=== PATIENT | female | born 1995 | race Hispanic/Latino ===

== ENCOUNTER 2017-06-04 15:00 | Emergency (ER) | payer SELFPAY | END 2017-06-04 15:53 | disposition home or self-care (01) | LOC: EDH 15:00 | DX: R11.2 Nausea with vomiting, unspecified (principal); R19.7 Diarrhea, unspecified | CPT/HCPCS: 99281 ==

== ENCOUNTER 2020-03-01 11:03 | Emergency (ER) | payer MEDICAID ==
[2020-03-01 11:31] LABS: BASOPHILS % (AUTO) 0.2 % (0.0-5.0); EOSINOPHILS % (AUTO) 0.1 % (0.0-8.0); HEMATOCRIT 44.3 % (36-48); LYMPHOCYTES % (AUTO) 14.8 % (21.0-51.0); MEAN CORPUSCULAR HEMOGLOBIN 27.4 pg (27.0-33.0); MEAN CORPUSCULAR HGB CONC 33.2 g/dL (32.0-36.0); MEAN CORPUSCULAR VOLUME 82.6 fL (79-99); MONOCYTES % (AUTO) 7.6 % (3.0-13.0); PLATELET COUNT (AUTO) 449 K/uL (130-400); RED BLOOD CELL COUNT(AUTO) 5.36 MIL/uL (4.00-5.50); RED CELL DISTRIBUTION WIDTH 14.8 % (11.0-15.5); WHITE BLOOD COUNT (AUTO) 10.8 K/uL (4.8-10.8)
[2020-03-01 11:36] LABS: CARBON DIOXIDE 22 mmol/L (21-32); CHLORIDE 96 mmol/L (101-111); CREATININE 1.1 mg/dL (0.5-1.5); GLOMERULAR FILTR. RATE CALC 66 mL/min (>60); GLUCOSE,RANDOM 126 mg/dL (70-105); POTASSIUM 3.5 mmol/L (3.5-5.1); SODIUM SERUM 134 mmol/L (136-145); UREA NITROGEN, BLOOD 12 mg/dL (7-18)
[2020-03-01 11:40] LABS: ALANINE AMINOTRANSFERASE 14 U/L (12-78); ALBUMIN 4.7 g/dL (3.5-5.0); ALCOHOL, BLOOD < 3 mg/dL (0-10); ASPARTATE AMINOTRANSFERASE 16 U/L (10-37); BILIRUBIN,TOTAL 0.7 mg/dL (0.2-1.0); CREATINE KINASE, TOTAL 27 U/L (21-232); SALICYLATE 4.5 mg/dL (2.8-20.0); TOTAL PROTEIN, SERUM 9.8 g/dL (6.0-8.3)
[2020-03-01 11:41] LABS: ACETAMINOPHEN < 1 mcg/mL (10-30)
[2020-03-01 13:43] LABS: APPEARANCE,URINE Cloudy (CLEAR); BILIRUBIN,URINE Negative (NEGATIVE); COLOR,URINE Dark Yellow (YELLOW); GLUCOSE, URINE (UA) Negative (NEGATIVE); KETONES,URINE >=80 mg/dL (NEGATIVE); LEUKOCYTE ESTERASE ,URINE Small (NEGATIVE); NITRATE,URINE Negative (NEGATIVE); OCCULT BLOOD,URINE Large (NEGATIVE); PH,URINE 5.5 (5.0-8.0); PROTEIN,URINE POS 2+ mg/dL (NEGATIVE)
[2020-03-01 13:53] LABS: HCG,QUAL RESULT NEGATIVE (NEGATIVE)
[2020-03-01 13:59] LABS: AMPHET/METH SCREEN,URINE NEGATIVE (NEGATIVE); BARBITURATE SCREEN, URINE NEGATIVE (NEGATIVE); BENZODIAZEPINES SCREEN,URINE NEGATIVE (NEGATIVE); CANNABINOID SCREEN,URINE POSITIVE (NEGATIVE); COCAINE SCREEN,URINE NEGATIVE (NEGATIVE); OPIATE SCREEN,URINE NEGATIVE (NEGATIVE); PHENCYCLIDINE SCREEN,URINE NEGATIVE (NEGATIVE)
[2020-03-01 14:16] LABS: BACTERIA,URINE Few /HPF (None Seen); SQUAMOUS EPITHELIAL CELL,UR 30-50 /HPF (0-2)
== END 2020-03-01 18:33 | disposition home or self-care (01) ==
LOC: EDH 11:03
DX: F23 Brief psychotic disorder (principal); F12.10 Cannabis abuse, uncomplicated; Z72.0 Tobacco use
CPT/HCPCS: 36415; 80053; 80305; 81001; 81025; 82550; 85025; 87088; 93005; 99284; G0481

== ENCOUNTER 2020-08-30 12:36 | Emergency (ER) | payer MEDICAID ==
[2020-08-30] MEDS ORDERED: SODIUM CHLORIDE 0.9% 1000ML 1,000 ML IV ONE (13:05)
[2020-08-30] MEDS ORDERED: METOCLOPRAMIDE 10 MG/2 ML VIAL ONE (13:07)
[2020-08-30 13:08] LABS: BASOPHILS % (AUTO) 0.1 % (0.0-5.0); EOSINOPHILS % (AUTO) 0.1 % (0.0-8.0); HEMATOCRIT 39.6 % (36-48); LYMPHOCYTES % (AUTO) 12.5 % (21.0-51.0); MEAN CORPUSCULAR HEMOGLOBIN 29.2 pg (27.0-33.0); MEAN CORPUSCULAR HGB CONC 35.4 g/dL (32.0-36.0); MEAN CORPUSCULAR VOLUME 82.5 fL (79-99); MONOCYTES % (AUTO) 5.2 % (3.0-13.0); NEUTROPHILS % (AUTO) 81.8 % (40.0-77.0); PLATELET COUNT (AUTO) 358 K/uL (130-400); RED CELL DISTRIBUTION WIDTH 14.7 % (11.0-15.5); WHITE BLOOD COUNT (AUTO) 14.1 K/uL (4.8-10.8)
[2020-08-30 13:18] LABS: CREATININE 0.8 mg/dL (0.5-1.5); POTASSIUM 3.6 mmol/L (3.5-5.1)
[2020-08-30 13:44] LABS: ALBUMIN 4.4 g/dL (3.5-5.0); BILIRUBIN,TOTAL 0.9 mg/dL (0.2-1.0); TOTAL PROTEIN, SERUM 9.2 g/dL (6.0-8.3)
[2020-08-30 14:18] LABS: APPEARANCE,URINE Cloudy (CLEAR); BILIRUBIN,URINE Negative (NEGATIVE); COLOR,URINE Dark Yellow (YELLOW); GLUCOSE, URINE (UA) Negative (NEGATIVE); KETONES,URINE >=160 mg/dL (NEGATIVE); LEUKOCYTE ESTERASE ,URINE Moderate (NEGATIVE); NITRATE,URINE Negative (NEGATIVE); OCCULT BLOOD,URINE Negative (NEGATIVE); PROTEIN,URINE POS 2+ mg/dL (NEGATIVE)
[2020-08-30 14:51] LABS: BACTERIA,URINE Moderate /HPF (None Seen); MUCUS,URINE Moderate LPF (None Seen); SQUAMOUS EPITHELIAL CELL,UR Many /HPF (0-2)
== END 2020-08-30 15:01 | disposition home or self-care (01) ==
LOC: EDH 12:36
DX: O21.0 Mild hyperemesis gravidarum (principal); O23.41 Unspecified infection of urinary tract in pregnancy, first trimester; Z3A.01 Less than 8 weeks gestation of pregnancy
CPT/HCPCS: 36415; 76801; 80053; 81001; 83690; 84702; 85025; 87088; 96361; 96374; 99284; J2765; J7030

== ENCOUNTER 2023-12-10 21:37 | Emergency (ER) | payer MEDICAID ==
[~2023-12-10] VITALS: Ht 162.6 cm; Wt 74.4 kg
[2023-12-10] MEDS: ACETAMINOPHEN 500 MG TABLET PO ONE (21:57)
[2023-12-10 22:13] LABS: RAPID GROUP A STREP negative (NEGATIVE)
[2023-12-10] MEDS: 0.9%NACL 1000ML 1,000 ML IV ONE (22:20)
[2023-12-10 22:22] LABS: INFLUENZA TYPE A Negative For Type A (NEGATIVE); INFLUENZA TYPE B Negative For Type B (NEGATIVE)
[2023-12-10 22:23] LABS: COVID19 (SARS ANTIGEN RAPID) PRESUMPTIVE NEGATIVE (NEGATIVE)
[2023-12-10 22:33] LABS: BASOPHILS # (AUTO) 0.02 K/uL (0.00-0.20); BASOPHILS % (AUTO) 0.2 % (0.0-5.0); EOSINOPHILS # (AUTO) 0.05 K/uL (0.00-0.70); EOSINOPHILS % (AUTO) 0.4 % (0.0-8.0); HEMATOCRIT 31.7 % (36-48); IMMATURE GRANULOCYTE ABSOLUTE 0.04 K/uL (0-1); LYMPHOCYTES # (AUTO) 2.2 K/uL (1.0-4.8); LYMPHOCYTES % (AUTO) 18.7 % (21.0-51.0); MEAN CORPUSCULAR HEMOGLOBIN 26.7 pg (27.0-33.0); MEAN CORPUSCULAR HGB CONC 32.8 g/dL (32.0-36.0); MEAN CORPUSCULAR VOLUME 81.5 fL (79-99); MONOCYTES # (AUTO) 1.1 K/uL (0.1-1.0); MONOCYTES % (AUTO) 9.3 % (3.0-13.0); NEUTROPHILS # (AUTO) 8.4 K/uL (1.8-7.7); NEUTROPHILS % (AUTO) 71.1 % (40.0-77.0); PLATELET COUNT (AUTO) 280 K/uL (130-400); RED BLOOD CELL COUNT(AUTO) 3.89 MIL/uL (4.00-5.50); RED CELL DISTRIBUTION WIDTH 13.6 % (11.0-15.5); WHITE BLOOD COUNT (AUTO) 11.9 K/uL (4.8-10.8)
[2023-12-10 22:47] LABS: CREATININE 0.6 mg/dL (0.5-1.0); POTASSIUM 3.2 mmol/L (3.5-5.1)
[2023-12-11] MEDS ORDERED: POTASSIUM BICARB/CIT AC 25 MEQ TABLET.EFF PO ONE
[2023-12-11] MEDS ORDERED: KETOROLAC 30MG VIAL (30MG/ML) IVP ONE
[2023-12-11] MEDS ORDERED: DEXAMETHASONE SOD PHOSPHATE 4 MG/ML 1ML VIAL IM ONE
[2023-12-11 00:13] VITALS: BP 132/74; PULSE 98; RESP 20; O2SAT 98
[2023-12-11] MEDS ORDERED: AMOX500T2 PO (00:14)
[2023-12-11] MEDS ORDERED: METH4TAB3 PO (00:14)
[2023-12-11] MEDS: POTASSIUM BICARB/CIT AC 25 MEQ TABLET.EFF ONE (00:28)
[2023-12-11] MEDS: DEXAMETHASONE SOD PHOSPHATE 4 MG/ML 1ML VIAL ONE (00:29)
[2023-12-11] MEDS: KETOROLAC 30MG VIAL (30MG/ML) ONE (00:29)
== END 2023-12-11 00:41 | disposition home or self-care (01) ==
LOC: EDH 21:37
DX: J02.9 Acute pharyngitis, unspecified (principal); Z20.822 Contact with and (suspected) exposure to COVID-19; E87.6 Hypokalemia; R59.1 Generalized enlarged lymph nodes
CPT/HCPCS: 99285; 96361; 87426; 80048; 85025; 87880; 87804 ×2; 83605; 81025; 36415; 76536; 96374; 96372; J7030; J1100; J1885

== ENCOUNTER 2024-05-20 10:11 | Emergency (ER) | payer MEDICAID ==
[~2024-05-20] VITALS: Ht 160 cm; Wt 70.3 kg
[~2024-05-20 10:11] MED LIST: AMOX500T2 PO; FAMO20TA8 PO
[2024-05-20 10:42] LABS: BASOPHILS # (AUTO) 0.03 K/uL (0.00-0.20); BASOPHILS % (AUTO) 0.3 % (0.0-5.0); EOSINOPHILS # (AUTO) 0.03 K/uL (0.00-0.70); EOSINOPHILS % (AUTO) 0.3 % (0.0-8.0); HEMATOCRIT 49.1 % (36-48); IMMATURE GRANULOCYTE ABSOLUTE 0.03 K/uL (0-1); LYMPHOCYTES # (AUTO) 1.9 K/uL (1.0-4.8); LYMPHOCYTES % (AUTO) 18.4 % (21.0-51.0); MEAN CORPUSCULAR HEMOGLOBIN 29.8 pg (27.0-33.0); MEAN CORPUSCULAR HGB CONC 33.4 g/dL (32.0-36.0); MEAN CORPUSCULAR VOLUME 89.3 fL (79-99); MONOCYTES # (AUTO) 0.3 K/uL (0.1-1.0); MONOCYTES % (AUTO) 2.8 % (3.0-13.0); NEUTROPHILS # (AUTO) 8.2 K/uL (1.8-7.7); NEUTROPHILS % (AUTO) 77.9 % (40.0-77.0); PLATELET COUNT (AUTO) 409 K/uL (130-400); RED CELL DISTRIBUTION WIDTH 13.2 % (11.0-15.5); WHITE BLOOD COUNT (AUTO) 10.6 K/uL (4.8-10.8)
--- NOTE | 2024-05-20 10:54 | ERN ---
General Chief Complaint: Abdominal Pain Stated Complaint: ABD PAIN Time Seen by MD: 10:17 Time Seen by Midlevel: 10:17 Source: patient History of Present Illness Initial Comments 28-year-old female who presents to the ED due to abdominal pain. Patient reports nausea, vomiting, diarrhea but denies any fevers or further associated symptoms. Patient states she has a history of gallstones but was at the time. Patient states she is currently going through a miscarriage. Denies significant past medical history. Allergies: Coded Allergies: No Known Allergies (Unverified Allergy, Unknown, 08/30/20) Home Meds Active Scripts Famotidine (Famotidine) 20 Mg Tablet, 1 TAB PO BID for 30 Days, #60 TAB 0 Refills Prov:DHEERAJ GUTIERREZ CLINICAL REVIEW SPECIALIST 05/10/24 Amoxicillin (Amoxicillin) 500 Mg Tablet, 1 TAB PO TID for 7 Days, #21 TAB 0 Refills Prov:DHEERAJ GUTIERREZ CLINICAL REVIEW SPECIALIST 05/10/24 Past Medical History Past Medical History: Gallstones Past Surgical History: None Female( History) LMP: Apr 28, 2024 : 2 Para: 1 ROS Dictation Constitutional: Negative for fever,chills, and weight loss Eyes: Negative for injury, pain,redness, and discharge ENT: Negative for injury,pain or swelling Cardiovascular: Negative for chest pain, palpitations, and edema Respiratory: Negative for shortness of breath, cough, and wheezing, Abdomen/GI: Positive for abdominal pain, nausea, vomiting, diarrhea Negative for constipation Back: Negative for injury and pain : Negative for painful urination, bleeding or discharge MS/Extremity: Negative for injury and deformity Skin: Negative for rash, and discoloration Neuro: Negative for headache, weakness, numbness, tingling, and seizure Psych: Negative for suicide ideation, homicidal ideation, and hallucinations Physical Exam Physical Exam Dictation General: awake, alert, no acute distress Head/Face: Normocephalic, atraumatic Eyes: normal conjunctiva Cardiovascular: RRR, normal S1/S Respiratory: CTAB, no respiratory distress, No rales or wheezes Abdomen: Soft, right upper quadrant tenderness, non-distended, no guarding or rebound. Skin: Warm, dry, normal turgor, no rash MS/Extremity: Pulses equal, no cyanosis, neurovascular intact, FROM Neuro: COAx4, GCS 15, normal gait, Psych: Normal behavior, mood, and affect normal Results Laboratory and Microbiology Lab and Micro Result Laboratory Tests Test 05/20/24 10:30 05/20/24 11:40 White Blood Count 10.6 K/uL (4.8-10.8) Red Blood Count 5.50 MIL/uL (4.00-5.50) Hemoglobin 16.4 g/dL (12.0-16.0) H Hematocrit 49.1 % (36-48) H Mean Corpuscular Volume 89.3 fL (79-99) Mean Corpuscular Hemoglobin 29.8 pg (27.0-33.0) Mean Corpuscular Hemoglobin Concent 33.4 g/dL (32.0-36.0) Red Cell Distribution Width 13.2 % (11.0-15.5) Platelet Count 409 K/uL (130-400) H Mean Platelet Volume 10.3 fL (7.5-10.5) Immature Granulocyte % (Auto) 0.3 % (0-1) Neutrophils (%) (Auto) 77.9 % (40.0-77.0) H Lymphocytes (%) (Auto) 18.4 % (21.0-51.0) L Monocytes (%) (Auto) 2.8 % (3.0-13.0) L Eosinophils (%) (Auto) 0.3 % (0.0-8.0) Basophils (%) (Auto) 0.3 % (0.0-5.0) Neutrophils # (Auto) 8.2 K/uL (1.8-7.7) H Lymphocytes # (Auto) 1.9 K/uL (1.0-4.8) Monocytes # (Auto) 0.3 K/uL (0.1-1.0) Eosinophils # (Auto) 0.03 K/uL (0.00-0.70) Basophils # (Auto) 0.03 K/uL (0.00-0.20) Absolute Immature Granulocyte (auto 0.03 K/uL (0-1) Nucleated Red Blood Cells 0.0 % (0.0-0.19) Sodium Level 142 mmol/L (136-145) Potassium Level 3.6 mmol/L (3.5-5.1) Chloride Level 103 mmol/L (101-111) Carbon Dioxide Level 27 mmol/L (21-32) Blood Urea Nitrogen 5 mg/dL (7-18) L Creatinine 0.9 mg/dL (0.5-1.0) Glomerular Filtration Rate Calc 90 mL/min (>90) Random Glucose 115 mg/dL (70-105) H Total Calcium 9.5 mg/dL (8.5-10.1) Total Bilirubin 0.5 mg/dL (0.2-1.0) Aspartate Amino Transf (AST/SGOT) 13 U/L (10-37) Alanine Aminotransferase (ALT/SGPT) 26 U/L (12-78) Alkaline Phosphatase 71 U/L (50-136) Total Protein 9.6 g/dL (6.0-8.3) H Albumin 5.0 g/dL (3.5-5.0) Lipase 33 U/L (16-77) Urine Color LIGHT-YELLOW (YELLOW) Urine Appearance CLEAR (CLEAR) Urine pH 6.5 (5.0-8.0) Urine Specific [place] 1.016 (1.001-1.031) Urine Protein NEGATIVE mg/dL (NEGATIVE) Urine Glucose (UA) NEGATIVE mg/dL (NEGATIVE) Urine Ketones 10 mg/dL (NEGATIVE) H Urine Occult Blood NEGATIVE (NEGATIVE) Urine Nitrate NEGATIVE (NEGATIVE) Urine Bilirubin NEGATIVE mg/dL (NEGATIVE) Urine Urobilinogen 0.2 mg/dL (0.2-1.0) Urine Leukocyte Esterase NEGATIVE Kylee/uL Urine RBC 0-1 /HPF (0-1) Urine WBC 2-5 /HPF (0-1) H Urine Squamous Epithelial Cells FEW /HPF (0-2) Urine Bacteria RARE /HPF (None Seen) Urine HCG, Qualitative NEGATIVE (NEGATIVE) Labs Reviewed?: Yes EKG/XRAY/US/CT/MRI Ultrasound Comment REASON: RUQ abdominal pain ORDERING PHYSICIAN: DAVIS NOBLE PROCEDURE: [id number] - US ABDOMINAL RUQ\LTD Exam Type: US ABDOMINAL RUQ\E\LTD Clinical Information: RUQ abdominal pain Comparison: None Findings: The liver shows normal echogenicity and size. No hepatic lesions are seen. Doppler evaluation shows patent portal and hepatic veins. The gallbladder shows cholelithiasis. No acute or chronic inflammation is noted. The gallbladder wall measures 2 mm No bile duct dilatation is noted. The common bile duct measures 6mm. The right kidney measures 9.3 x 4.3 cm, and shows no hydronephrosis or calculi, masses or other abnormalities. The pancreas is unremarkable. The aorta and inferior vena cava show no significant abnormalities. IMPRESSION: Cholelithiasis. MDM MDM: Differential diagnosis: Biliary colic, cholecystitis, cholelithiasis Rationale: 28-year-old female who presents to the ED due to abdominal pain. Patient reports nausea, vomiting, diarrhea but denies any fevers or further associated symptoms. Patient states she has a history of gallstones but was at the time. Patient states she is currently going through a miscarriage. Denies significant past medical history. On initial examination patient had right upper quadrant tenderness. Labs obtained are nonspecific. UA does not indicate a urinary tract infection. Right upper quadrant ultrasound shows cholelithiasis with no indications of cholecystitis. Patient was administered morphine and Zofran in the ED. On re- examination patient verbalized pain resolved, and had no more episodes of vomiting. Patient was educated on findings and diagnosis. Advised to follow up with PCP. Return to the ED if any worsening symptoms. Patient verbalized understanding. Patient stable for discharge. There are no social concerns with this patient. I independently interpreted the test that were performed, results were reviewed by me and considered findings on radiology if ordered. Medical management and examination interpretation discussions were had by me with other qualified healthcare professionals as indicated for the patient's care. ED Course Orders Procedure Category Date Status Time Cbc With Differential LAB 05/20/24 Complete 10:19 Comprehensive LAB 05/20/24 Complete Metabolic Panel 10:19 Lipase LAB 05/20/24 Complete 10:19 Urinalysis LAB 05/20/24 Complete W/Microscopic 10:19 ,Urine Test LAB 05/20/24 Complete 10:19 Us Abdominal Ruq\Ltd US 05/20/24 Resulted 10:25 Ondansetron 4mg Inj PHA 05/20/24 Complete (Zofran 4mg Inj) 10:30 Morphine 2mg Syg PHA 05/20/24 Complete (Morphine 2mg Syg) 10:30 Morphine 2mg Syg PHA 05/20/24 Complete (Morphine 2mg Syg) 12:30 Current Medications Medications (Trade) Dose Ordered Sig/Matt Route PRN Reason Start Time Stop Time Status Last Admin Dose Admin Morphine Sulfate (morPHINE 2MG SYG) 2 mg ONCE ONCE IVP 05/20/24 10:30 05/20/24 10:31 DC 05/20/24 11:02 Morphine Sulfate (morPHINE 2MG SYG) 2 mg ONCE ONCE IVP 05/20/24 12:30 05/20/24 12:31 DC Ondansetron HCl (zoFRAN 4MG INJ) 4 mg ONCE ONCE IVP 05/20/24 10:30 05/20/24 10:31 DC 05/20/24 11:01 Vital Signs Date Time Temp Pulse Resp B/P (MAP) Pulse Ox O2 Delivery O2 Flow Rate FiO2 05/20/24 10:13 97.3 84 16 147/99 100 Room Air 0 DX & DISP Disposition: Discharge Departure Impression: Primary Impression: Biliary colic Additional Impression: Cholelithiasis Condition: Stable Additional Instructions: Discharge home. Rest. Follow up with primary care DrJennifer in 24 hours. Return to the ER for any acute changes or worsening symptoms. If any medications were prescribed take as directed. Okay to continue home medications unless otherwise discussed during your visit in the emergency room today. Patient was also advised to follow-up with primary care physician in 1 to 2 days for continued monitoring. Referrals: NONE (PCP) I participated in the following activities of this patient's care: For this patient encounter, I reviewed the PA or CLINICAL REVIEW SPECIALIST documentation, treatment plan, and medical decision making. I did not have [id number] time with this patient. I will sign as the reviewing DrJennifer And agree with the treatment plan and disposition . DAVIS NOBLE May 20, 2024 10:54
[2024-05-20 10:55] LABS: CREATININE 0.9 mg/dL (0.5-1.0); POTASSIUM 3.6 mmol/L (3.5-5.1)
[2024-05-20 10:59] LABS: BILIRUBIN,TOTAL 0.5 mg/dL (0.2-1.0); TOTAL PROTEIN, SERUM 9.6 g/dL (6.0-8.3)
[2024-05-20] MEDS: ondanSETRON 4MG INJ IVP ONE (11:01)
[2024-05-20] MEDS: morPHINE 2 MG SYG IVP ONE ×2 (11:02→13:16)
--- NOTE | 2024-05-20 11:39 | HMCIMG ---
Exam Type: US ABDOMINAL RUQ\E\LTD Clinical Information: RUQ abdominal pain Comparison: None Findings: The liver shows normal echogenicity and size. No hepatic lesions are seen. Doppler evaluation shows patent portal and hepatic veins. The gallbladder shows cholelithiasis. No acute or chronic inflammation is noted. The gallbladder wall measures 2 mm No bile duct dilatation is noted. The common bile duct measures 6mm. The right kidney measures 9.3 x 4.3 cm, and shows no hydronephrosis or calculi, masses or other abnormalities. The pancreas is unremarkable. The aorta and inferior vena cava show no significant abnormalities. IMPRESSION: Cholelithiasis.
[2024-05-20 12:27] LABS: APPEARANCE,URINE CLEAR (CLEAR); BILIRUBIN,URINE NEGATIVE (NEGATIVE); COLOR,URINE LIGHT-YELLOW (YELLOW); GLUCOSE, URINE (UA) NEGATIVE (NEGATIVE); KETONES,URINE 10 mg/dL (NEGATIVE); LEUKOCYTE ESTERASE ,URINE NEGATIVE Leu/uL (NEGATIVE); NITRATE,URINE NEGATIVE (NEGATIVE); OCCULT BLOOD,URINE NEGATIVE (NEGATIVE); PH,URINE 6.5 (5.0-8.0); PROTEIN,URINE NEGATIVE (NEGATIVE); UROBILINOGEN,URINE 0.2 mg/dL (0.2-1.0)
[2024-05-20 12:35] LABS: HCG,QUALITATIVE URINE NEGATIVE (NEGATIVE)
[2024-05-20 12:37] LABS: BACTERIA,URINE RARE /HPF (None Seen); MUCUS,URINE RARE LPF (None Seen); RBC,URINE 0-1 /HPF (0-1); SQUAMOUS EPITHELIAL CELL,UR FEW /HPF (0-2)
[2024-05-20 14:13] VITALS: BP 101/63; PULSE 67; RESP 16; TEMP 98.5; O2SAT 99
== END 2024-05-20 14:19 | disposition home or self-care (01) ==
LOC: EDH 10:11
DX: K80.70 Calculus of gallbladder and bile duct without cholecystitis without obstruction (principal); Z79.899 Other long term (current) drug therapy
CPT/HCPCS: 99285; 96374; 76705; 96375; 80053; 83690; 85025; 81001; 81025; 36415; 96376; J2270 ×2; J2405

== ENCOUNTER 2024-06-02 08:32 | Inpatient (IN) | payer MEDICAID ==
[~2024-06-02] VITALS: Ht 160 cm; Wt 72.0 kg
[2024-06-02 09:31] LABS: BASOPHILS # (AUTO) 0.04 K/uL (0.00-0.20); BASOPHILS % (AUTO) 0.3 % (0.0-5.0); EOSINOPHILS # (AUTO) 0.07 K/uL (0.00-0.70); EOSINOPHILS % (AUTO) 0.6 % (0.0-8.0); HEMATOCRIT 38.6 % (36-48); IMMATURE GRANULOCYTE ABSOLUTE 0.03 K/uL (0-1); LYMPHOCYTES # (AUTO) 1.7 K/uL (1.0-4.8); LYMPHOCYTES % (AUTO) 13.5 % (21.0-51.0); MEAN CORPUSCULAR HEMOGLOBIN 29.8 pg (27.0-33.0); MEAN CORPUSCULAR HGB CONC 33.9 g/dL (32.0-36.0); MEAN CORPUSCULAR VOLUME 87.9 fL (79-99); MONOCYTES # (AUTO) 0.5 K/uL (0.1-1.0); MONOCYTES % (AUTO) 3.9 % (3.0-13.0); NEUTROPHILS # (AUTO) 10.1 K/uL (1.8-7.7); NEUTROPHILS % (AUTO) 81.5 % (40.0-77.0); PLATELET COUNT (AUTO) 303 K/uL (130-400); RED BLOOD CELL COUNT(AUTO) 4.39 MIL/uL (4.00-5.50); RED CELL DISTRIBUTION WIDTH 12.8 % (11.0-15.5); WHITE BLOOD COUNT (AUTO) 12.4 K/uL (4.8-10.8)
[2024-06-02] MEDS: LACTATED RINGERS 1000ML 1,000 ML IV ONE (09:32)
[2024-06-02] MEDS: ondanSETRON 4MG INJ IVP ONE (09:32)
[2024-06-02 09:37] LABS: APPEARANCE,URINE CLEAR (CLEAR); BILIRUBIN,URINE NEGATIVE (NEGATIVE); COLOR,URINE YELLOW (YELLOW); GLUCOSE, URINE (UA) 50 mg/dL (NEGATIVE); KETONES,URINE 40 mg/dL (NEGATIVE); LEUKOCYTE ESTERASE ,URINE 25 Leu/uL (NEGATIVE); NITRATE,URINE NEGATIVE (NEGATIVE); OCCULT BLOOD,URINE NEGATIVE (NEGATIVE); PH,URINE 5.5 (5.0-8.0); PROTEIN,URINE 10 mg/dL (NEGATIVE); UROBILINOGEN,URINE 0.2 mg/dL (0.2-1.0)
[2024-06-02 09:43] LABS: ADD UA MICROSCOPIC YES; HCG,QUALITATIVE URINE POSITIVE (NEGATIVE)
[2024-06-02 09:44] LABS: BACTERIA,URINE RARE /HPF (None Seen); MUCUS,URINE RARE LPF (None Seen); OTHER CASTS, URINE 1 /LPF (None Seen); RBC,URINE 0-1 /HPF (0-1); SQUAMOUS EPITHELIAL CELL,UR FEW /HPF (0-2)
[2024-06-02 09:45] LABS: CREATININE 0.8 mg/dL (0.5-1.0); POTASSIUM 3.3 mmol/L (3.5-5.1)
[2024-06-02 09:50] LABS: ALBUMIN 3.8 g/dL (3.5-5.0); BILIRUBIN,TOTAL 0.5 mg/dL (0.2-1.0); TOTAL PROTEIN, SERUM 7.2 g/dL (6.0-8.3)
[2024-06-02] MEDS: morPHINE 2 MG SYG IVP ONE (10:27)
[2024-06-02] MEDS: PROMETHAZINE HCL 25 MG/ML 1ML AMPULE IM ONE (10:27)
--- NOTE | 2024-06-02 10:57 | ERN ---
ED Note History of Present Illness Stated Complaint: ABDOMINAL PAIN Chief Complaint: Nausea,Vomiting,Diarrhea Time Seen by MD: 08:36 Dictation: This 28-year-old female presents by EMS with severe nausea and vomiting onset at 5:00 a.m. and intermittent diarrhea. She reports severe abdominal pain in the epigastric area chest and right upper quadrant. She received 4 mg of Zofran and 4 mg of morphine EN route to the emergency department but reports minimal relief She was recently diagnosed with gallstones but surgery was deferred due to early . Since that time she was seen at [facility] and had a miscarriage. A sonogram apparently documented in empty uterus and a falling beta hCG. The patient has no allergies. She denies associated fever or urinary symptoms. She is not actively bleeding. She has no major medical illnesses. She has never had surgery. Patient lives at home with family does not smoke drink or use recreational drugs Allergies: Coded Allergies: No Known Allergies (Unverified Allergy, Unknown, 08/30/20) Home Meds Active Scripts Famotidine (Famotidine) 20 Mg Tablet, 1 TAB PO BID for 30 Days, #60 TAB 0 Refills Prov:DHEERAJ GUTIERREZ NP 05/10/24 Amoxicillin (Amoxicillin) 500 Mg Tablet, 1 TAB PO TID for 7 Days, #21 TAB 0 Refills Prov:DHEERAJ GUTIERREZ NP 05/10/24 Past Medical History Past Medical History: No Pertinent History Surgical History: None Social History: Negative : 2 Para: 1 RN Note Reviewed/Agreed w/PFSH: Yes Review of System Dictation All pertinent systems reviewed, negative except as documented in the HPI The ROS is obtained from patient GENERAL/CONSTITUTIONAL: Negative except as documented in HPI. ENT: Negative except as documented in HPI. CARDIOVASCULAR: Negative except as documented in HPI. RESPIRATORY: Negative except as documented in HPI. GASTROINTESTINAL: Negative except as documented in HPI. GENITOURINARY: Negative except as documented in HPI. MUSCULOSKELETAL: Negative except as documented in HPI. SKIN: Negative except as documented in HPI. NEUROLOGIC: Negative except as documented in HPI. Initial Vital Sign VS Vital Signs Date Time Temp Pulse Resp B/P (MAP) Pulse Ox O2 Delivery O2 Flow Rate FiO2 06/02/24 08:33 98.8 70 20 147/77 99 Room Air 0 06/02/24 08:39 21 Physical Exam Dictation VITAL SIGNS: note is made of triage vital signs CONSTITUTIONAL: This is an uncomfortable ill-appearing patient who is a little sleepy but arouses to reports severe pain and nausea HEAD: Normocephalic, Atraumatic. EYES: Periorbital areas with no swelling, redness, or edema. Lids and lashes are normal. Conjunctival injection is absent. Sclera anicteric. Pupils equal, round, reactive to light. ENT: No nasal discharge noted. Posterior pharynx is without exudate, redness, swelling, masses, or evidence of obstruction. Uvula midline. Mucous membranes dry NECK: Trachea midline, no masses palpated, and no cervical lymphadenopathy. No swelling. Supple, full range of motion without nuchal rigidity. No vertebral point tenderness. No meningismus. CHEST/AXILLA: Normal chest wall appearance and motion. No tenderness. No crepitus. CV: Normal rate, regular rhythm. No murmur. No edema. RESPIRATORY:Respiratory rate is normal. Bilateral equal breath sounds with good airflow. Normal breath sounds are noted. No rales, rhonchi or wheezes noted. No increased work of breathing, no retractions. ABDOMEN: Inspection is normal. There was right upper quadrant and epigastric tenderness with some mild guarding. There was no rigidity or rebound. Bowel sounds are present BACK: Inspection is normal. No midline tenderness is appreciated. The patient appears comfortable when moving. : No CVA tenderness or bladder tenderness. SKIN: Warm, dry, with normal turgor. Capillary refill less than 3 seconds. Normal color.No rash. No cellulitis or abscess. No evidence of acute injury. MS/Extremity: There is no calf tenderness. Baseline range of motion is noted in all 4 extremities. There are no deformities. NEURO: Awake and alert, lucid. Facies symmetric and speech is clear. Motor strength 5/5 in all extremities. Sensory grossly intact. PSYCH: Patient is appropriately attentive and cooperative without evidence of hallucination. Results (Laboratory/Radiology) Laboratory/Radiology Laboratory Tests Test 06/02/24 09:10 06/02/24 09:15 White Blood Count 12.4 K/uL (4.8-10.8) H Red Blood Count 4.39 MIL/uL (4.00-5.50) Hemoglobin 13.1 g/dL (12.0-16.0) Hematocrit 38.6 % (36-48) Mean Corpuscular Volume 87.9 fL (79-99) Mean Corpuscular Hemoglobin 29.8 pg (27.0-33.0) Mean Corpuscular Hemoglobin Concent 33.9 g/dL (32.0-36.0) Red Cell Distribution Width 12.8 % (11.0-15.5) Platelet Count 303 K/uL (130-400) Mean Platelet Volume 10.4 fL (7.5-10.5) Immature Granulocyte % (Auto) 0.2 % (0-1) Neutrophils (%) (Auto) 81.5 % (40.0-77.0) H Lymphocytes (%) (Auto) 13.5 % (21.0-51.0) L Monocytes (%) (Auto) 3.9 % (3.0-13.0) Eosinophils (%) (Auto) 0.6 % (0.0-8.0) Basophils (%) (Auto) 0.3 % (0.0-5.0) Neutrophils # (Auto) 10.1 K/uL (1.8-7.7) H Lymphocytes # (Auto) 1.7 K/uL (1.0-4.8) Monocytes # (Auto) 0.5 K/uL (0.1-1.0) Eosinophils # (Auto) 0.07 K/uL (0.00-0.70) Basophils # (Auto) 0.04 K/uL (0.00-0.20) Absolute Immature Granulocyte (auto 0.03 K/uL (0-1) Nucleated Red Blood Cells 0.0 % (0.0-0.19) Sodium Level 138 mmol/L (136-145) Potassium Level 3.3 mmol/L (3.5-5.1) L Chloride Level 103 mmol/L (101-111) Carbon Dioxide Level 30 mmol/L (21-32) Blood Urea Nitrogen 5 mg/dL (7-18) L Creatinine 0.8 mg/dL (0.5-1.0) Glomerular Filtration Rate Calc 104 mL/min (>90) Random Glucose 114 mg/dL (70-105) H Total Calcium 9.0 mg/dL (8.5-10.1) Total Bilirubin 0.5 mg/dL (0.2-1.0) Aspartate Amino Transf (AST/SGOT) 13 U/L (10-37) Alanine Aminotransferase (ALT/SGPT) 16 U/L (12-78) Alkaline Phosphatase 60 U/L (50-136) Total Protein 7.2 g/dL (6.0-8.3) Albumin 3.8 g/dL (3.5-5.0) Lipase 20 U/L (16-77) Human Chorionic Gonadotropin, Quant 1 mIU/mL (0-5) Urine Color YELLOW (YELLOW) Urine Appearance CLEAR (CLEAR) Urine pH 5.5 (5.0-8.0) Urine Specific [place] 1.020 (1.001-1.031) Urine Protein 10 mg/dL (NEGATIVE) H Urine Glucose (UA) 50 mg/dL (NEGATIVE) H Urine Ketones 40 mg/dL (NEGATIVE) H Urine Occult Blood NEGATIVE (NEGATIVE) Urine Nitrate NEGATIVE (NEGATIVE) Urine Bilirubin NEGATIVE mg/dL (NEGATIVE) Urine Urobilinogen 0.2 mg/dL (0.2-1.0) Urine Leukocyte Esterase 25 Kylee/uL (NEGATIVE) H Urine RBC 0-1 /HPF (0-1) Urine WBC 6-10 /HPF (0-1) H Urine Squamous Epithelial Cells FEW /HPF (0-2) Urine Bacteria RARE /HPF (None Seen) Urine Other Casts 1 /LPF (None Seen) Urine HCG, Qualitative POSITIVE (NEGATIVE) H Labs Reviewed?: Yes ED Course ED Course Orders Procedure Category Date Status Time Cbc With Differential LAB 06/02/24 Complete 08:56 Comprehensive LAB 06/02/24 Complete Metabolic Panel 08:56 ,Urine Test LAB 06/02/24 Complete 08:56 Urinalysis Profile LAB 06/02/24 Complete 08:56 Lipase LAB 06/02/24 Complete 08:56 Us Abdominal Ruq\Ltd US 06/02/24 Resulted 09:13 Ondansetron 4mg Inj PHA 06/02/24 Complete (Zofran 4mg Inj) 09:30 Lactated Ringers PHA 06/02/24 Complete 1000ml (Lactated 09:30 Culture Urine ESCOBAR 06/02/24 In Process 09:47 Hcg,Quantitative LAB 06/02/24 Complete 10:06 Morphine 2mg Syg PHA 06/02/24 Complete (Morphine 2mg Syg) 10:30 Promethazine Hcl PHA 12/27/24 Complete (Phenergan) 10:30 Us Ob Transvaginal US 06/02/24 Resulted 10:12 Current Medications Medications (Trade) Dose Ordered Sig/Matt Route PRN Reason Start Time Stop Time Status Last Admin Dose Admin Lactated Ringer's 1,000 ml @ 0 mls/hr ONCE ONCE IV 06/02/24 09:30 06/02/24 09:31 DC 06/02/24 09:32 Morphine Sulfate (morPHINE 2MG SYG) 2 mg ONCE ONCE IVP 06/02/24 10:30 06/02/24 10:31 DC 06/02/24 10:27 Ondansetron HCl (zoFRAN 4MG INJ) 4 mg ONCE ONCE IVP 06/02/24 09:30 06/02/24 09:31 DC 06/02/24 09:32 Promethazine HCl (Phenergan) 25 mg ONCE ONCE IM 06/02/24 10:30 06/02/24 10:31 DC 06/02/24 10:27 Vital Signs Date Time Temp Pulse Resp B/P (MAP) Pulse Ox O2 Delivery O2 Flow Rate FiO2 06/02/24 11:31 66 15 139/98 100 Room Air* 0 21 06/02/24 08:39 98.8 74 18 145/65 98 Room Air* 0 21 06/02/24 08:33 98.8 70 20 147/77 99 Room Air 0 Medical Decision Making MDM INITIAL IMPRESSION Initial history and physical concerning for acute cholecystitis Concern relating to which might impact need for surgery Contributing medical problems: Recent miscarriage by report I have reviewed the triage nursing notes and vital signs. The patient is afebrile with acceptable oxygen saturation, heart rate and blood pressure. Initial plan: Laboratory screening, ultrasound DATA REVIEW I have reviewed additional NN, repeat VS, and monitoring where indicated. Heart rate, blood pressure, and O2 saturation are acceptable. Breaux diagnostic results: White count is 12. Lipase is normal. Beta hCG is one. Potassium is 3.3 Sonogram suggest acute cholecystitis with a an enlarged gallbladder and stone at the neck of the bladder. Ultrasound the reproductive organs shows no evidence of ectopic or intrauterine process Other independent historian: none Review of external data: EMS report reviewed. No previous evaluations ED COURSE Interventions: Patient received additional pain medication, IV fluids and antiemetics. Reassessment: She continues to complain of pain. DISPOSITION Final diagnostic impression: Acute cholecystitis, clinical dehydration, hypokalemia I discussed my findings, clinical impression and treatment recommendations with the patient. I have reviewed the social factors contributing to the patient's presentation and disposition planning. My final plan for disposition was made based upon clinical findings, response to treatment and discussion with the patient regarding management options. I consulted with Dr. LEE at 05 06 to arrange admission for further management. A call has been placed to the general surgeon for consultation. Hospitalization is indicated due to patient's current pain, dehydration and increase risk of short term progression, complication, morbidity or mortality related to the current diagnosis The patient will be admitted for further management of acute cholecystitis with dehydration and hypokalemia The patient has been advised regarding the reason for admission Questions were invited and answered in layman's terms. This dictation was prepared using medical voice recognition software. Occasional voice recognition errors may occur. When identified, these errors have been corrected. While every attempt is made to correct errors during dictation, errors may still exist. DX & DISP Disposition: Inpatient Decision to Admit Date: Jun 02, 2024 Departure Impression: Primary Impression: Acute cholecystitis Additional Impressions: Hypokalemia, Dehydration Condition: Stable Referrals: NONE (PCP) YNES COOK MD Jun 02, 2024 10:57
--- NOTE | 2024-06-02 11:29 | HMCIMG ---
Exam Type: US ABDOMINAL RUQ\E\LTD Clinical Information: ruq, epig p Comparison: None Findings: The liver shows normal echogenicity and is otherwise unremarkable. The liver measures less than 16 cm in length. Doppler evaluation shows patent portal and hepatic veins. The gallbladder shows cholelithiasis and sludge. Gallbladder is hydropic but there is no evidence of acute inflammation. The gallbladder wall thickness is 2 mm. No bile duct dilatation is noted. The common bile duct measures 4 mm. The right kidney measures 9.3 x 4.4 cm. The right kidney is normal in size and echogenicity. No hydronephrosis or renal calculi are seen. There are no renal masses. The pancreas is suboptimally visualized. IMPRESSION: Cholelithiasis and gallbladder sludge.
--- NOTE | 2024-06-02 11:30 | HMCIMG ---
Exam Type: US OB TRANSVAGINAL Clinical Information: pos preg test status unknown Comparison: None Findings: The examination shows an anteverted uterus which is normal in size and echogenicity. It measures 8.8 x 3.6 x 5.5 cm. The endometrial lining is normal in thickness. It measures 12 mm. No intrauterine or ectopic seen. The ovaries are normal in size and echogenicity. The right ovary measures 2.5 x 2.1 x 2.3 cm. The left ovary measures 2.7 x 2.3 x 2 cm. Vascular Doppler flow exam and spectral analysis of waveforms analysis is unremarkable bilaterally. There is preserved vascularity to both ovaries on Doppler evaluation. Specifically, there is no evidence of ovarian torsion. No free fluid is noted throughout the cul-de-sac. There are no adnexal abnormalities. No other significant abnormalities are seen. No fluid collections or masses or free fluid are identified in the pelvis. Impression: NORMAL EXAM. No evidence of uterine pathology. No evidence of adnexal abnormalities or ovarian torsion. No intrauterine or ectopic seen.
[2024-06-02] MEDS ORDERED: 0.9%NACL 50ML IV SCH (13:00)
[2024-06-02] MEDS: ZOSYN 3.375GM +NS 50ML IVPB SCH (13:09)
[2024-06-02] MEDS: LACTATED RINGERS 1000ML 1,000 ML IV SCH (13:09)
[2024-06-02] MEDS: PANTOPrazole 40 MG/VIAL IVP SCH (13:09)
--- NOTE | 2024-06-02 14:24 | NUR ---
DR. PASTOR AT BEDSIDE WITH PT.
--- NOTE | 2024-06-02 14:32 | HP ---
[facility] HISTORY AND PHYSICAL Date of Service: Jun 02, 2024 Time of Service: 14:32 HISTORY OF PRESENT ILLNESS: [Date of service: 06/02/2024, [facility] 28[facility] with history of cholelithiasis, recurrent biliary colic who presented to the ER with chief complaint of epigastric, right upper quadrant abdominal pain ongoing close to 5:00 a.m.. Patient states that she was recently and had a miscarriage unfortunately about two weeks ago. Patient was three weeks into her . Patient was seen in [facility] and her serum beta hCG level has been downtrending since the miscarriage. Patient was hospitalized in [facility] earlier in May, after she was diagnosed with biliary colic and acute cholecystitis. Patient was treated conservatively due to active . Patient states that she continues to have episodes of colicky abdominal pain involving the right upper quadrant, epigastric and episodes of severe acid reflux. Patient has been trying to limit spicy food and fatty food as well with no improvement of her symptoms. On presentation to the hospital, patient was noted to be afebrile and hemodynamically stable. [place] [address] with potassium of 3.4, and liver enzyme was noted to be normal with normal lipase. Urinalysis showed mild leukocyte esterase positive and serum beta HCG was noted to be at 1. Patient underwent right upper quadrant ultrasound which showed findings of hydropic gallbladder with cholelithiasis. Pelvic ultrasound showed no intrauterine or ectopic . Patient will be admitted for further management of recurrent biliary colic and consultation with surgery has been requested from ER by Dr. Rhodes. Patient will be placed on IV fluids and IV antibiotics and will be kept NPO today. Plan will be for laparoscopic cholecystectomy tomorrow. Patient will be monitored closely. Denies any previous medical comorbidities otherwise.] REVIEW OF SYSTEMS CONSTITUTIONAL: Denies fevers, chills, or night sweats. No unintentional weight loss reported. NEUROLOGICAL: Denies headache, amaurosis fugax, motor weakness, sensory deficit, vertigo/spinning sensation, gait abnormalities, or tremors. ENT: No hearing loss, otalgia, otorrhea, rhinitis, rhinorrhea, hoarseness, or sore throat. CARDIOVASCULAR: Denies any exertional angina, dyspnea on exertion, orthopnea, paroxysmal nocturnal dyspnea, palpitations, life-threatening arrhythmias, claudication. PULMONARY: Denies any shortness of breath, cough, phlegm/sputum, hemoptysis, pleuritic chest pain. SLEEP: Denies morning headaches, daytime somnolence or napping. Denies dif ficulty falling asleep, staying asleep, waking from sleep. Denies knowledge of snoring. GASTROINTESTINAL: Nausea, vomiting, abdominal pain GENITOURINARY: Denies frequency, urgency, nocturia, hematuria or incontinence (Storage/Irritative symptoms.) Low urinary stream, straining to void, urinary intermittency or hesitancy, splitting of the voiding stream, terminal dribbling. ENDOCRINOLOGIC: Denies polyuria, polydipsia, polyphagia or heat/cold intolerances. HEMATOLOGIC: Denies thrombophilia/previous clots, or coagulopathy/bleeding disorders. ONCOLOGIC: Denies personal history of malignancy. DERMATOLOGIC: Denies rashes or pruritus. PSYCHIATRIC: Denies any suicidal or homicidal ideation. Denies hallucinations. PAST MEDICAL HISTORY: [ History of cholecystitis and cholelithiasis treated medically with antibiotics and conservative therapy with recent hospitalization in [facility] on 05/08/2024] PAST SURGICAL HISTORY: [ Patient denies history of major surgeries ] PAST SOCIAL HISTORY: [ Denies active alcohol consumption or illicit drug use ] FAMILY HISTORY: [ Denies pertinent family history] Allergies: Patient denies known drug allergies Coded Allergies: No Known Allergies (Unverified Allergy, Unknown, 08/30/20) PHYSICAL EXAM GENERAL APPEARANCE: The patient is awake, alert, and oriented, in no acute cardiopulmonary distress. NEUROLOGICAL: Cranial nerves II-XII grossly intact. Motor is 5/5 in bilateral upper and lower extremities proximal to distal. No sensory deficits. HEENT: Face is symmetric. Pupils are equal and reactive. Extraocular movements are intact. NECK: Supple. No JVD. No thyromegaly. No submental, submandibular, pre- /postauricular, occipital or supraclavicular lymphadenopathy. CHEST: Normal chest expansion. No Telemetry. LUNGS: Absence of any rales, rhonchi or any wheezing. CARDIOVASCULAR: Regular. S1 and S2 normal. No appreciable rubs, murmurs or gallops. ABDOMEN: Soft, nontender, and nondistended. There is no rebound, voluntary guarding, or rigidity. : Deferred. No Gomez. EXTREMITIES: Non-edematous and not cyanotic. No clubbing. Good capillary refill. SKIN: No skin breakdown. Vital Sign (Last 24 Hours) 06/02/24 06/02/24 08:39 12:20 Temp 98.8 Pulse 58 Resp 18 B/P (MAP) 115/65 Pulse Ox 98 O2 Delivery Room Air* O2 Flow Rate 0 FiO2 21 LABS: Laboratory: Test 06/02/24 09:15 06/02/24 09:10 Range/Units Urine Color YELLOW YELLOW Urine Appearance CLEAR CLEAR Urine pH 5.5 5.0-8.0 Urine Specific [place] 1.020 1.001-1.031 Urine Protein 10 H NEGATIVE mg/dL Urine Glucose (UA) 50 H NEGATIVE mg/dL Urine Ketones 40 H NEGATIVE mg/dL Urine Occult Blood NEGATIVE NEGATIVE Urine Nitrate NEGATIVE NEGATIVE Urine Bilirubin NEGATIVE NEGATIVE mg/dL Urine Urobilinogen 0.2 0.2-1.0 mg/dL Urine Leukocyte Esterase 25 H NEGATIVE Kylee/uL Urine RBC 0-1 0-1 /HPF Urine WBC 6-10 H 0-1 /HPF Urine Squamous Epithelial Cells FEW 0-2 /HPF Urine Bacteria RARE None Seen /HPF Urine Other Casts 1 None Seen /LPF Urine HCG, Qualitative POSITIVE H NEGATIVE White Blood Count 12.4 H 4.8-10.8 K/uL Red Blood Count 4.39 4.00-5.50 MIL/uL Hemoglobin 13.1 12.0-16.0 g/dL Hematocrit 38.6 36-48 % Mean Corpuscular Volume 87.9 79-99 fL Mean Corpuscular Hemoglobin 29.8 27.0-33.0 pg Mean Corpuscular Hemoglobin Concent 33.9 32.0-36.0 g/dL Red Cell Distribution Width 12.8 11.0-15.5 % Platelet Count 303 130-400 K/uL Mean Platelet Volume 10.4 7.5-10.5 fL Immature Granulocyte % (Auto) 0.2 0-1 % Neutrophils (%) (Auto) 81.5 H 40.0-77.0 % Lymphocytes (%) (Auto) 13.5 L 21.0-51.0 % Monocytes (%) (Auto) 3.9 3.0-13.0 % Eosinophils (%) (Auto) 0.6 0.0-8.0 % Basophils (%) (Auto) 0.3 0.0-5.0 % Neutrophils # (Auto) 10.1 H 1.8-7.7 K/uL Lymphocytes # (Auto) 1.7 1.0-4.8 K/uL Monocytes # (Auto) 0.5 0.1-1.0 K/uL Eosinophils # (Auto) 0.07 0.00-0.70 K/uL Basophils # (Auto) 0.04 0.00-0.20 K/uL Absolute Immature Granulocyte (auto 0.03 0-1 K/uL Nucleated Red Blood Cells 0.0 0.0-0.19 % Sodium Level 138 136-145 mmol/L Potassium Level 3.3 L 3.5-5.1 mmol/L Chloride Level 103 101-111 mmol/L Carbon Dioxide Level 30 21-32 mmol/L Blood Urea Nitrogen 5 L 7-18 mg/dL Creatinine 0.8 0.5-1.0 mg/dL Glomerular Filtration Rate Calc 104 >90 mL/min Random Glucose 114 H 70-105 mg/dL Total Calcium 9.0 8.5-10.1 mg/dL Total Bilirubin 0.5 0.2-1.0 mg/dL Aspartate Amino Transf (AST/SGOT) 13 10-37 U/L Alanine Aminotransferase (ALT/SGPT) 16 12-78 U/L Alkaline Phosphatase 60 50-136 U/L Total Protein 7.2 6.0-8.3 g/dL Albumin 3.8 3.5-5.0 g/dL Lipase 20 16-77 U/L Human Chorionic Gonadotropin, Quant 1 0-5 mIU/mL Current Medications Medications (Trade) Dose Ordered Sig/Matt Route PRN Reason Start Time Stop Time Status Last Admin Dose Admin Enoxaparin Sodium (Lovenox) 40 mg DAILY SQ 06/03/24 09:00 06/02/24 14:30 DC Ketorolac Tromethamine (toRADol) 15 mg Q12H PRN IV MODERATE PAIN (4-6) 06/02/24 13:00 06/04/24 13:00 Lactated Ringer's 1,000 ml @ 80 mls/hr [id number] IV 06/02/24 13:00 07/02/24 12:59 06/02/24 13:09 80 MLS/HR Morphine Sulfate (morPHINE 2MG SYG) 2 mg Q8H PRN IVP SEVERE PAIN (7-10) 06/02/24 13:00 06/09/24 12:59 Ondansetron HCl (zoFRAN 4MG INJ) 4 mg Q6H PRN IVP NAUSEA/VOMITING 06/02/24 13:00 07/02/24 12:59 Pantoprazole Sodium (PROTonix 40MG INJ) 40 mg Q24H IVP 06/02/24 13:00 07/02/24 12:59 06/02/24 13:09 40 MG Piperacillin Sod/ Tazobactam Sod (Zosyn 3.375gm+NS 50ml) 3.375 gm Q8H IVPB 06/02/24 13:00 06/12/24 12:59 06/02/24 13:09 3.375 GM Sodium Chloride (NS 50ml) 50 ml AD IV 06/02/24 13:00 06/02/24 12:42 DC Thiamine HCl (Vitamin B-1) 100 mg Q24H IVP 06/02/24 14:00 07/02/24 13:59 DIAGNOSTICS / RADIOLOGY: [ SERVICE 2 REASON: ruq, epig p ORDERING PHYSICIAN: YNES RHODES MD PROCEDURE: [id number] - US ABDOMINAL RUQ\LTD Exam Type: US ABDOMINAL RUQ\E\LTD Clinical Information: ruq, epig p Comparison: None Findings: The liver shows normal echogenicity and is otherwise unremarkable. The liver measures less than 16 cm in length. Doppler evaluation shows patent portal and hepatic veins. The gallbladder shows cholelithiasis and sludge. Gallbladder is hydropic but there is no evidence of acute inflammation. The gallbladder wall thickness is 2 mm. No bile duct dilatation is noted. The common bile duct measures 4 mm. The right kidney measures 9.3 x 4.4 cm. The right kidney is normal in size and echogenicity. No hydronephrosis or renal calculi are seen. There are no renal masses. The pancreas is suboptimally visualized. IMPRESSION: Cholelithiasis and gallbladder sludge. DICTATED BY: SOPHIE GEE MD DATE: 06/02/24 112 ELECTRONICALLY SIGNED BY: SOPHIE GEE MD DATE: 06/02/24 112 ] ASSESSMENT: Recurrent biliary colic, POA Rule out developing acute cholecystitis, POA Cholelithiasis w/ biliary sludge, POA Prior history of cholecystitis with cholelithiasis in 05/08/2024, POA Dehydration, POA Mild UTI, POA Recent history of miscarriage with downtrending beta HCG, POA PLAN: Patient will be admitted to medical-surgical floor Discussed patient's case with Dr. Rhodes and consultation with General surgery has already been requested from ER, patient has a history of recurrent biliary colic with prior history of acute cholecystitis/cholelithiasis, we will have surgery evaluate for laparoscopic cholecystectomy We will keep patient NPO, IV fluids and IV antibiotics with Zosyn Follow up urine culture, patient may have mild urinary tract infection Patient reports having had recent miscarriage with downtrending beta HCG, pelvic ultrasound showed no ectopic and no intrauterine Electrolytes will be repleted protocol Plan by General surgery for laparoscopic cholecystectomy tomorrow Pain control with Tylenol for mild pain, Toradol for moderate pain, and morphine for severe pain All labs will be repeated in the morning DVT prophylaxis with SCDs GI prophylaxis with Protonix Date of service: 06/02/2024 Plan of care was discussed with patient at bedside, Mikal Cheung MD Advanced Care Planning: Which of the following were discussed: Hospice care: Yes __ No _X_ Therapeutic options: Yes _X_ No __ Advance directives: Yes _X_ No __ Other discussions: Discussed with who?: Patient Voluntary nature of this service was explained to the patient? Yes _x_ No __ Amount of time spent: 20 minutes MIKAL CHEUNG MD Jun 02, 2024 14:32
[2024-06-02] MEDS: THIAMINE HCL 100 MG/ML 2ML VIAL IVP SCH (14:46)
[2024-06-02] MEDS ORDERED: PoTASSium chl 10% ELIXIR 20MEQ 20 MEQ/15 ML UDCUP PO PRN (15:00)
[2024-06-02] MEDS ORDERED: PoTASSium chloRIDE 20MEQ/100ML 100 ML IV PRN (15:00)
[2024-06-02 16:25] VITALS: BP 112/58; PULSE 53; RESP 18; TEMP 98.1
--- NOTE | 2024-06-02 16:25 | NUR ---
PT ARRIVED TO ROOM 312 , STABLE VITAL SIGNS, PT DENIES ANY PAIN AT THE MOMENT. PT DENIES ANY HOME MEDICATIONS. PT IS AWARE OF PROCEDURE WITH DR PASTOR. PT HAD NO FURTHER QUESTIONS AT THE MOMENT
[2024-06-02] MEDS ORDERED: MAGNESIUM 2GM PREMIX 50ML 50 ML IV SCH (17:30)
[2024-06-02 20:01] VITALS: BP 103/69; PULSE 67; RESP 20; TEMP 98.3
[2024-06-02] MEDS: ketOROlac 15MG/ML VIAL (15MG/ML) IV PRN (21:44)
[2024-06-03] VITALS (28 sets, daily range): BP systolic 98–157; BP diastolic 59–89; PULSE 54–103; RESP 12–20; TEMP 97.5–98.5; O2SAT 96
--- NOTE | 2024-06-03 00:19 | CONS ---
HISTORY OF PRESENT ILLNESS: The patient is a 28-year-old female, recently found to have gallstones, recently had a miscarriage, who despite changing her diet to a low fat healthy diet, has been having continued more frequent episodes of right upper quadrant pain. The patient states last she ate was grilled fish and ____ began having sharp right upper quadrant pain, necessitating her coming to the ER. I have been asked to see the patient for laparoscopic cholecystectomy. PAST MEDICAL HISTORY: Above. ALLERGIES: She has no known drug allergies. PHYSICAL EXAMINATION: GENERAL: The patient is awake, alert and oriented, in no acute distress. CHEST: Clear. HEART: Regular rate and rhythm. ABDOMEN: Soft, but tender in the right upper quadrant with localized guarding, no rebound. Positive bowel sounds. EXTREMITIES: Show no edema. Ultrasound of the abdomen confirms gallstones and sludge. Common duct measures 4 mm. Gallbladder is hydropic, but there is no evidence of acute inflammation. LABORATORY DATA: White count of 12, hematocrit 38.6. LFTs within normal limits. UA shows positive hCG, but vaginal ultrasound is negative. ASSESSMENT AND PLAN: Cholelithiasis, cholecystitis for laparoscopic cholecystectomy in a.m. TID: [id number] RECEIPT: [id number]
[2024-06-03] MEDS: DiphenhydrAMINE HCL 25 MG CAPSULE PO PRN (03:34)
[2024-06-03] MEDS: ondanSETRON 4MG INJ IVP PRN (06:09)
[2024-06-03] MEDS: morPHINE 2 MG SYG IVP PRN (06:09)
[2024-06-03 06:21] LABS: BASOPHILS # (AUTO) 0.02 K/uL (0.00-0.20); BASOPHILS % (AUTO) 0.3 % (0.0-5.0); EOSINOPHILS # (AUTO) 0.18 K/uL (0.00-0.70); EOSINOPHILS % (AUTO) 2.3 % (0.0-8.0); HEMATOCRIT 31.4 % (36-48); IMMATURE GRANULOCYTE ABSOLUTE 0.01 K/uL (0-1); LYMPHOCYTES # (AUTO) 2.8 K/uL (1.0-4.8); LYMPHOCYTES % (AUTO) 35.5 % (21.0-51.0); MEAN CORPUSCULAR HEMOGLOBIN 30.3 pg (27.0-33.0); MEAN CORPUSCULAR HGB CONC 33.8 g/dL (32.0-36.0); MEAN CORPUSCULAR VOLUME 89.7 fL (79-99); MONOCYTES # (AUTO) 0.6 K/uL (0.1-1.0); NEUTROPHILS # (AUTO) 4.2 K/uL (1.8-7.7); NEUTROPHILS % (AUTO) 53.8 % (40.0-77.0); PLATELET COUNT (AUTO) 249 K/uL (130-400); RED CELL DISTRIBUTION WIDTH 12.9 % (11.0-15.5); WHITE BLOOD COUNT (AUTO) 7.8 K/uL (4.8-10.8)
[2024-06-03 06:27] LABS: INR 0.94 (0.85-1.15); PROTHROMBIN TIME 10.6 SEC (9.6-11.6)
[2024-06-03 06:28] LABS: PARTIAL THROMBOPLASTIN TIME 25.9 SEC (26.3-35.5)
[2024-06-03 06:51] LABS: ALBUMIN 2.8 g/dL (3.5-5.0); BILIRUBIN,TOTAL 0.5 mg/dL (0.2-1.0); CREATININE 0.8 mg/dL (0.5-1.0); POTASSIUM 3.4 mmol/L (3.5-5.1); TOTAL PROTEIN, SERUM 5.5 g/dL (6.0-8.3)
--- NOTE | 2024-06-03 07:50 | NUR ---
PT GOT TAKEN DOWN FOR SURGERY
[2024-06-03] MEDS ORDERED: BUPIvacaine/PF 0.25% 30ML VIAL IJ ONE (08:13)
[2024-06-03] MEDS ORDERED: SUCCINYLCHOLINE CHLORIDE 20 MG/ML 10 ML VIAL ONE (08:14)
[2024-06-03] MEDS ORDERED: proPOFol 10 MG/ML 20ML VIAL IV ONE (08:14)
[2024-06-03] MEDS ORDERED: MIDAZOLAM HCL 1 MG/ML 2ML VIAL ONE (08:14)
[2024-06-03] MEDS ORDERED: rocuRONium bROMide 10MG/1ML 5ML VL ONE (08:15)
[2024-06-03] MEDS ORDERED: FENTanyl CITRate PF 50 MCG/1 ML 2ML VIAL ONE (08:15)
[2024-06-03] MEDS: BUPIvacaine/PF 0.25% 30ML VIAL IJ ONE (08:23)
[2024-06-03] MEDS ORDERED: ENOXAPARIN SODIUM 40 MG/0.4 ML SYRINGE SQ SCH (09:00)
[2024-06-03] MEDS ORDERED: ondanSETRON 4MG INJ ONE (09:16)
[2024-06-03] MEDS ORDERED: NEOSTIGMINE METHYLSULFATE 1MG/ML IV ONE (09:16)
[2024-06-03] MEDS ORDERED: dexaMETHasone SOD PHOSPHATE 10MG/ML 1ML VIAL ONE (09:16)
[2024-06-03] MEDS ORDERED: GLYCOPYRROLATE 0.2 MG/ML 5 ML VIAL ONE (09:16)
[2024-06-03] MEDS ORDERED: MEPERIDINE-PF 25 MG/ML SYG ONE (09:21)
--- NOTE | 2024-06-03 09:30 | PRN ---
OPERATIVE REPORT DATE OF SERVICE: [ 06/03/2024] PREOPERATIVE DIAGNOSIS: [ Acute cholecystitis] POSTOPERATIVE DIAGNOSIS: [ Same] PROCEDURE PERFORMED: Laparoscopic cholecystectomy. ANESTHESIA: General. BLOOD LOSS: [ Less than 10 cc] SPECIMEN: [Gallbladder with stones ] DESCRIPTION OF PROCEDURE: The patient was given preoperative antibiotics, was prepped and draped and explored through a supraumbilical incision after endotracheally intubating. A Veress needle was placed into the abdomen with negative aspiration and free flow of fluid. The abdomen was insufflated to 15 mL of water using CO2 and a 10-mm camera placed within. The remaining trocars, a 10-mm in the epigastrium and two 5-mm in the right upper quadrant were placed under direct visualization. The gallbladder fundus was elevated. The infundibulum grasped and placed on mild lateral retraction. A large amount of fat and adhesions were cleared from the infundibulum. The cystic artery as well as the posterior branch were clipped twice proximally, once distally and divided as was the cystic duct. The gallbladder was removed from the gallbladder bed using electrocautery and the gallbladder was placed in an Endobag and brought out through the epigastric incision. The abdomen was copiously irrigated and hemostasis ensured. The abdomen was desufflated. The larger incisions were closed with interrupted Vicryl. Marcaine and guilherme were used for the skin. Patient tolerated the procedure. CHANELLE PASTOR MD Jun 03, 2024 09:30
[2024-06-03] MEDS ORDERED: ACET-2079 PO (09:31)
[2024-06-03] MEDS: ketOROlac 30MG VIAL (30MG/ML) ONE (09:46)
[2024-06-03] MEDS: ondanSETRON 4MG INJ ONE (09:48)
[2024-06-03] MEDS: metoCLOPRAmide 10 MG/2 ML VIAL ONE (09:58)
[2024-06-03] MEDS: PROMETHAZINE HCL 25 MG/ML 1ML AMPULE IM ONE (10:08)
[2024-06-03] MEDS: SCOPOLAMINE HYDROBROMIDE 1 EACH ADH..PATCH TD ONE (10:08)
--- NOTE | 2024-06-03 10:28 | NUR ---
PT RETURN TO FLOOR AFTER SURGERY. PT ALERT AND ORIENTED. BED POSITIONED TO LOWEST POSITION CALL LIGHT WITH IN REACH. PT WAS INSTRUCTED TO NOT GET UP WITH OUT ANY ASSISTANCE AT THE MOMENT
[2024-06-03] MEDS: LACTULOSE 20 GM/30 ML UDCUP PO ONE (13:06)
[2024-06-03] MEDS: morPHINE 2 MG SYG IVP ONE (13:08)
--- NOTE | 2024-06-03 14:50 | NUR ---
DCP Pt awake, alert, oriented X3 lives with grandmother Angelcia Lopez [phone]. Pt is independent, able to perform ADLs, anticipates discharge is for home. Addendum: 06/03/24 at 1453 by KASANDRA GARLAND RN CM Amended: Links added.
--- NOTE | 2024-06-03 20:30 | NUR ---
ACTIVITY AMBULATING IN THE HALLWAY ACCOMPANIED BY PATIENTS , STEADY GAIT, NO SOB, NO C/O PAIN AT THIS TIME, ENCOURAGE DEEP BREATHING EXERCISES, BACK TO BED, TOLERATED WELL
--- NOTE | 2024-06-03 22:26 | PN ---
[facility] PROGRESS NOTE Date of Service: Jun 03, 2024 Time of Service: 22:26 SUBJECTIVE: [ The patient is a 28-year-old female post laparoscopic cholecystectomy on 06/03/2024 now awaiting discharge. Patient recovering well without complications. Tolerated solid diet. No signs of infection or surgical site issues; however, no bowel movement noted since surgery. Started on lactulose to stimulate bowel movement. We will continue to monitor patient. ] REVIEW OF SYSTEMS CONSTITUTIONAL: Denies fevers, chills, or night sweats. No unintentional weight loss reported. NEUROLOGICAL: Denies headache, amaurosis fugax, motor weakness, sensory deficit, vertigo/spinning sensation, gait abnormalities, or tremors. ENT: No hearing loss, otalgia, otorrhea, rhinitis, rhinorrhea, hoarseness, or sore throat. CARDIOVASCULAR: Denies any exertional angina, dyspnea on exertion, orthopnea, paroxysmal nocturnal dyspnea, palpitations, life-threatening arrhythmias, claudication. PULMONARY: Denies any shortness of breath, cough, phlegm/sputum, hemoptysis, pleuritic chest pain. SLEEP: Denies morning headaches, daytime somnolence or napping. Denies difficulty falling asleep, staying asleep, waking from sleep. Denies knowledge of snoring. GASTROINTESTINAL: Nausea, vomiting, abdominal pain GENITOURINARY: Denies frequency, urgency, nocturia, hematuria or incontinence (Storage/Irritative symptoms.) Low urinary stream, straining to void, urinary intermittency or hesitancy, splitting of the voiding stream, terminal dribbling. ENDOCRINOLOGIC: Denies polyuria, polydipsia, polyphagia or heat/cold intoleranc es. HEMATOLOGIC: Denies thrombophilia/previous clots, or coagulopathy/bleeding disorders. ONCOLOGIC: Denies personal history of malignancy. DERMATOLOGIC: Denies rashes or pruritus. PSYCHIATRIC: Denies any suicidal or homicidal ideation. Denies hallucinations. PHYSICAL EXAM GENERAL APPEARANCE: The patient is awake, alert, and oriented, in no acute cardiopulmonary distress. NEUROLOGICAL: Cranial nerves II-XII grossly intact. Motor is 5/5 in bilateral upper and lower extremities proximal to distal. No sensory deficits. HEENT: Face is symmetric. Pupils are equal and reactive. Extraocular movements are intact. NECK: Supple. No JVD. No thyromegaly. No submental, submandibular, pre- /postauricular, occipital or supraclavicular lymphadenopathy. CHEST: Normal chest expansion. No Telemetry. LUNGS: Absence of any rales, rhonchi or any wheezing. CARDIOVASCULAR: Regular. S1 and S2 normal. No appreciable rubs, murmurs or gallops. ABDOMEN: Soft, nontender, and nondistended. There is no rebound, voluntary guarding, or rigidity. : Deferred. No Gomez. EXTREMITIES: Non-edematous and not cyanotic. No clubbing. Good capillary refill. SKIN: No skin breakdown. Vital Signs (last 8hr) Date Time Temp Pulse Resp B/P (MAP) Pulse Ox O2 Delivery O2 Flow Rate FiO2 06/03/24 20:00 98.2 63 20 113/63 99 Room Air 06/03/24 20:00 Room Air* 0 21 06/03/24 16:15 98.2 54 17 113/75 99 Room Air 06/03/24 15:15 78 17 119/75 96 Room Air LABS: Laboratory: Test 06/03/24 06:03 06/02/24 15:23 06/02/24 09:15 06/02/24 09:10 Range/Units White Blood Count 7.8 # 4.8-10.8 K/uL Red Blood Count 3.50 #L 4.00-5.50 MIL/uL Hemoglobin 10.6 L 12.0-16.0 g/dL Hematocrit 31.4 L 36-48 % Mean Corpuscular Volume 89.7 79-99 fL Mean Corpuscular Hemoglobin 30.3 27.0-33.0 pg Mean Corpuscular Hemoglobin Concent 33.8 32.0-36.0 g/dL Red Cell Distribution Width 12.9 11.0-15.5 % Platelet Count 249 130-400 K/uL Mean Platelet Volume 10.6 H 7.5-10.5 fL Immature Granulocyte % (Auto) 0.1 0-1 % Neutrophils (%) (Auto) 53.8 40.0-77.0 % Lymphocytes (%) (Auto) 35.5 21.0-51.0 % Monocytes (%) (Auto) 8.0 3.0-13.0 % Eosinophils (%) (Auto) 2.3 0.0-8.0 % Basophils (%) (Auto) 0.3 0.0-5.0 % Neutrophils # (Auto) 4.2 1.8-7.7 K/uL Lymphocytes # (Auto) 2.8 1.0-4.8 K/uL Monocytes # (Auto) 0.6 0.1-1.0 K/uL Eosinophils # (Auto) 0.18 0.00-0.70 K/uL Basophils # (Auto) 0.02 0.00-0.20 K/uL Absolute Immature Granulocyte (auto 0.01 0-1 K/uL Nucleated Red Blood Cells 0.0 0.0-0.19 % Prothrombin Time 10.6 9.6-11.6 SEC Prothromb Time International Ratio 0.94 0.85-1.15 Activated Partial Thromboplast Time 25.9 L 26.3-35.5 SEC Sodium Level 144 136-145 mmol/L Potassium Level 3.4 L 3.5-5.1 mmol/L Chloride Level 108 101-111 mmol/L Carbon Dioxide Level 29 21-32 mmol/L Blood Urea Nitrogen 3 L 7-18 mg/dL Creatinine 0.8 0.5-1.0 mg/dL Glomerular Filtration Rate Calc 104 >90 mL/min Random Glucose 87 70-105 mg/dL Total Calcium 7.7 L 8.5-10.1 mg/dL Total Bilirubin 0.5 0.2-1.0 mg/dL Aspartate Amino Transf (AST/SGOT) 12 10-37 U/L Alanine Aminotransferase (ALT/SGPT) 12 # 12-78 U/L Alkaline Phosphatase 41 #L 50-136 U/L Total Protein 5.5 #L 6.0-8.3 g/dL Albumin 2.8 #L 3.5-5.0 g/dL Erythrocyte Sedimentation Rate 5 0-20 MM/HR Magnesium Level 1.60 L 1.80-2.40 mg/dL C-Reactive Protein, Quantitative 2.00 0.5-3.0 mg/L Procalcitonin < 0.05 L 0.05-0.5 ng/mL Urine Color YELLOW YELLOW Urine Appearance CLEAR CLEAR Urine pH 5.5 5.0-8.0 Urine Specific [place] 1.020 1.001-1.031 Urine Protein 10 H NEGATIVE mg/dL Urine Glucose (UA) 50 H NEGATIVE mg/dL Urine Ketones 40 H NEGATIVE mg/dL Urine Occult Blood NEGATIVE NEGATIVE Urine Nitrate NEGATIVE NEGATIVE Urine Bilirubin NEGATIVE NEGATIVE mg/dL Urine Urobilinogen 0.2 0.2-1.0 mg/dL Urine Leukocyte Esterase 25 H NEGATIVE Kylee/uL Urine RBC 0-1 0-1 /HPF Urine WBC 6-10 H 0-1 /HPF Urine Squamous Epithelial Cells FEW 0-2 /HPF Urine Bacteria RARE None Seen /HPF Urine Other Casts 1 None Seen /LPF Urine HCG, Qualitative POSITIVE H NEGATIVE Lipase 20 16-77 U/L Human Chorionic Gonadotropin, Quant 1 0-5 mIU/mL Current Medications Medications (Trade) Dose Ordered Sig/Matt Route PRN Reason Start Time Stop Time Status Last Admin Dose Admin Diphenhydramine HCl (BENAdryl CAP) 25 mg Q8H PRN PO ITCHING 06/03/24 03:30 07/03/24 03:29 06/03/24 03:34 25 MG Enoxaparin Sodium (Lovenox) 40 mg DAILY SQ 06/03/24 09:00 06/02/24 14:30 DC Ketorolac Tromethamine (toRADol) 15 mg Q12H PRN IV MODERATE PAIN (4-6) 06/02/24 13:00 06/04/24 13:00 06/03/24 18:41 15 MG Lactated Ringer's 1,000 ml @ 80 mls/hr [id number] IV 06/02/24 13:00 07/02/24 12:59 06/03/24 13:18 80 MLS/HR Magnesium Sulfate 50 ml @ 0 mls/hr PROTOCOL IV 06/02/24 17:30 07/02/24 17:29 Morphine Sulfate (morPHINE 2MG SYG) 2 mg Q8H PRN IVP SEVERE PAIN (7-10) 06/02/24 13:00 06/09/24 12:59 06/03/24 20:59 2 MG Ondansetron HCl (zoFRAN 4MG INJ) 4 mg Q6H PRN IVP NAUSEA/VOMITING 06/02/24 13:00 07/02/24 12:59 06/03/24 20:58 4 MG Pantoprazole Sodium (PROTonix 40MG INJ) 40 mg Q24H IVP 06/02/24 13:00 07/02/24 12:59 06/03/24 13:01 40 MG Piperacillin Sod/ Tazobactam Sod (Zosyn 3.375gm+NS 50ml) 3.375 gm Q8H IVPB 06/02/24 13:00 06/12/24 12:59 06/03/24 19:52 3.375 GM Potassium Chloride 100 ml @ 100 mls/hr AD PRN IV POTASSIUM PROTOCOL 06/02/24 15:00 07/02/24 14:59 Potassium Chloride (K-Dur/Klor-Con 20meq) 20 meq AD PRN PO POTASSIUM PROTOCOL 06/02/24 15:00 07/02/24 14:59 Potassium Chloride (KCl 10% Elixir 20meq/15ml) 20 meq AD PRN PO POTASSIUM PROTOCOL 06/02/24 15:00 07/02/24 14:59 Sodium Chloride (NS 50ml) 50 ml AD IV 06/02/24 13:00 06/02/24 12:42 DC Thiamine HCl (Vitamin B-1) 100 mg Q24H IVP 06/02/24 14:00 07/02/24 13:59 06/03/24 13:07 100 MG DIAGNOSTICS / RADIOLOGY: [ ] ASSESSMENT: Recurrent biliary colic, POA Rule out developing acute cholecystitis, POA Cholelithiasis w/ biliary sludge, POA Prior history of cholecystitis with cholelithiasis in 05/08/2024, POA Dehydration, POA Mild UTI, POA Recent history of miscarriage with downtrending beta HCG, POA PLAN: Patient will be admitted to medical-surgical floor Discussed patient's case with Dr. Rhodes and consultation with General surgery has already been requested from ER, patient has a history of recurrent biliary colic with prior history of acute cholecystitis/cholelithiasis, we will have surgery evaluate for laparoscopic cholecystectomy We will keep patient NPO, IV fluids and IV antibiotics with Zosyn Follow up urine culture, patient may have mild urinary tract infection Patient reports having had recent miscarriage with downtrending beta HCG, pelvic ultrasound showed no ectopic and no intrauterine Electrolytes will be repleted protocol Plan by General surgery for laparoscopic cholecystectomy tomorrow Pain control with Tylenol for mild pain, Toradol for moderate pain, and morphine for severe pain All labs will be repeated in the morning DVT prophylaxis with SCDs GI prophylaxis with Protonix Date of service: 06/02/2024 Plan of care was discussed with patient at bedside, Mikal Cheung MD ATTESTATION BY PHYSICIAN I have seen and examined the patient. I reviewed the documentation, medical decision making, and treatment plan as noted by the mid-level provider above. I agree with the findings and plan of care. Pita Felix MD, [facility] Jun 03, 2024 22:26
[2024-06-04] VITALS: BP 113/70; PULSE 53; RESP 20; TEMP 99.1
[2024-06-04 04:00] VITALS: BP 105/68; PULSE 52; RESP 20; TEMP 98
[2024-06-04 05:36] LABS: BASOPHILS # (AUTO) 0.01 K/uL (0.00-0.20); BASOPHILS % (AUTO) 0.1 % (0.0-5.0); EOSINOPHILS # (AUTO) 0.01 K/uL (0.00-0.70); EOSINOPHILS % (AUTO) 0.1 % (0.0-8.0); HEMATOCRIT 28.3 % (36-48); IMMATURE GRANULOCYTE ABSOLUTE 0.04 K/uL (0-1); LYMPHOCYTES # (AUTO) 2.2 K/uL (1.0-4.8); LYMPHOCYTES % (AUTO) 22.6 % (21.0-51.0); MEAN CORPUSCULAR HEMOGLOBIN 30.3 pg (27.0-33.0); MEAN CORPUSCULAR HGB CONC 33.2 g/dL (32.0-36.0); MEAN CORPUSCULAR VOLUME 91.3 fL (79-99); MONOCYTES # (AUTO) 0.7 K/uL (0.1-1.0); MONOCYTES % (AUTO) 7.7 % (3.0-13.0); NEUTROPHILS # (AUTO) 6.6 K/uL (1.8-7.7); NEUTROPHILS % (AUTO) 69.1 % (40.0-77.0); PLATELET COUNT (AUTO) 198 K/uL (130-400); RED CELL DISTRIBUTION WIDTH 12.7 % (11.0-15.5); WHITE BLOOD COUNT (AUTO) 9.5 K/uL (4.8-10.8)
[2024-06-04 05:56] LABS: ALBUMIN 2.6 g/dL (3.5-5.0); BILIRUBIN,TOTAL 0.5 mg/dL (0.2-1.0); CREATININE 0.7 mg/dL (0.5-1.0); POTASSIUM 3.5 mmol/L (3.5-5.1); TOTAL PROTEIN, SERUM 5.2 g/dL (6.0-8.3)
[2024-06-04 08:18] VITALS: BP 112/79; PULSE 79; RESP 18; TEMP 98
[2024-06-04 09:21] VITALS: O2SAT 98
[2024-06-04] MEDS: PoTASSium chloRIDE 20MEQ ER 20 MEQ ERTAB PO PRN (10:53)
[2024-06-04 11:14] VITALS: BP 103/70; PULSE 65; RESP 17; TEMP 98.3
[2024-06-04] MEDS: LACTULOSE 20 GM/30 ML UDCUP PO ONE (11:21)
--- NOTE | 2024-06-04 14:08 | NUR ---
DISCHARGE PT PIV DC'D PT VERBALIZED UNDERSTANDING OF DISCHARGE INSTRUCTIONS PT GATHERED AND TOOK ALL BELONGINGS PT HAD NO FURTHER QUESTIONS AT TIME OF DISCHARGE
--- NOTE | 2024-06-04 14:18 | DS ---
Discharge Summary Hospital Course Summary: 28 yo female admitted with recurrent biliary colic. underwent uneventful laporascopic cholycystectomy and discharged postop day 1 after BM. Chief Juvenile Probation Officer(s): dr moreau gen surgery Procedure(s): lap choly Assessment/Plan: ASSESSMENT: Recurrent biliary colic, POA Rule out developing acute cholecystitis, POA Cholelithiasis w/ biliary sludge, POA Prior history of cholecystitis with cholelithiasis in 05/08/2024, POA Dehydration, POA Mild UTI, POA Recent history of miscarriage with downtrending beta HCG, POA PLAN: Patient will be admitted to medical-surgical floor Discussed patient's case with Dr. Rhodes and consultation with General surgery has already been requested from ER, patient has a history of recurrent biliary colic with prior history of acute cholecystitis/cholelithiasis, we will have surgery evaluate for laparoscopic cholecystectomy We will keep patient NPO, IV fluids and IV antibiotics with Zosyn Follow up urine culture, patient may have mild urinary tract infection Patient reports having had recent miscarriage with downtrending beta HCG, pelvic ultrasound showed no ectopic and no intrauterine Electrolytes will be repleted protocol Plan by General surgery for laparoscopic cholecystectomy tomorrow Pain control with Tylenol for mild pain, Toradol for moderate pain, and morphine for severe pain All labs will be repeated in the morning DVT prophylaxis with SCDs GI prophylaxis with Protonix Date of service: 06/02/2024 Plan of care was discussed with patient at bedside, Mikal Cheung MD Discharge Instructions: see d/c instructions. Home Medications: Active Scripts Acetaminophen with Codeine (Acetaminophen-Cod #3 Tablet) 300 Mg-30 Mg Tablet, 1 EACH PO Q4PRN, #20 TAB Prov:CHANELLE MOREAU MD 06/03/24 Discontinued Scripts Famotidine (Famotidine) 20 Mg Tablet, 1 TAB PO BID for 30 Days, #60 TAB 0 Refills Prov:DHEERAJ GUTIERREZ NP 05/10/24 Amoxicillin (Amoxicillin) 500 Mg Tablet, 1 TAB PO TID for 7 Days, #21 TAB 0 Refills Prov:DHEERAJ GUTIERREZ NP 05/10/24 Time spent arranging discharge: 1-30 minutes GORDY INFANTE MD Jun 04, 2024 14:18
== END 2024-06-04 14:45 | disposition home or self-care (01) | DRG 263 ==
LOC: EDH 08:32 → EDHIP 08:33 → 3BH 16:25
PROVIDERS: ADMIT Internal Medicine; ATTEND Internal Medicine
PROC: 0FT44ZZ Resection of Gallbladder, Percutaneous Endoscopic Approach (ICD-10-PCS; principal; 2024-06-03 08:12)
DX: K80.62 Calculus of gallbladder and bile duct with acute cholecystitis without obstruction (principal); E86.0 Dehydration; N39.0 Urinary tract infection, site not specified; K21.9 Gastro-esophageal reflux disease without esophagitis; E87.6 Hypokalemia; Z79.899 Other long term (current) drug therapy
CPT/HCPCS: 36415; 76705; 76817; 80053; 81001; 81025; 83690; 83735; 84145; 84702; 85025; 85610; 85651; 85730; 86140; 87086; 96361; 96372; 96374; 96375; 99285; G0378; J0330; J1100; J1885; J2175; J2250; J2270; J2405; J2470; J2543; J2550; J2704; J2710; J2765; J3010; J3411; J3490; J7030; J7120; Q0163; A4215; A4600; A4649; A6206; J0665

== ENCOUNTER 2024-11-13 10:26 | Emergency (ER) | payer MEDICAID ==
[~2024-11-13] VITALS: Ht 160 cm; Wt 68.0 kg
[~2024-11-13 10:26] MED LIST changes: +ACET-2079 PO; -AMOX500T2 PO; -FAMO20TA8 PO
[2024-11-13 10:50] LABS: BASOPHILS # (AUTO) 0.03 K/uL (0.00-0.20); BASOPHILS % (AUTO) 0.3 % (0.0-5.0); EOSINOPHILS # (AUTO) 0.06 K/uL (0.00-0.70); EOSINOPHILS % (AUTO) 0.6 % (0.0-8.0); HEMATOCRIT 36.9 % (36-48); IMMATURE GRANULOCYTE ABSOLUTE 0.04 K/uL (0-1); LYMPHOCYTES # (AUTO) 1.5 K/uL (1.0-4.8); LYMPHOCYTES % (AUTO) 15.7 % (21.0-51.0); MEAN CORPUSCULAR HEMOGLOBIN 31.4 pg (27.0-33.0); MEAN CORPUSCULAR HGB CONC 33.9 g/dL (32.0-36.0); MEAN CORPUSCULAR VOLUME 92.7 fL (79-99); MONOCYTES # (AUTO) 0.5 K/uL (0.1-1.0); NEUTROPHILS # (AUTO) 7.4 K/uL (1.8-7.7); PLATELET COUNT (AUTO) 243 K/uL (130-400); RED BLOOD CELL COUNT(AUTO) 3.98 MIL/uL (4.00-5.50); RED CELL DISTRIBUTION WIDTH 13.2 % (11.0-15.5); WHITE BLOOD COUNT (AUTO) 9.5 K/uL (4.8-10.8)
[2024-11-13 11:29] LABS: APPEARANCE,URINE CLEAR (CLEAR); BILIRUBIN,URINE NEGATIVE (NEGATIVE); COLOR,URINE COLORLESS (YELLOW); GLUCOSE, URINE (UA) NEGATIVE (NEGATIVE); KETONES,URINE NEGATIVE (NEGATIVE); LEUKOCYTE ESTERASE ,URINE NEGATIVE Leu/uL (NEGATIVE); NITRATE,URINE NEGATIVE (NEGATIVE); OCCULT BLOOD,URINE NEGATIVE (NEGATIVE); PH,URINE 5.5 (5.0-8.0); PROTEIN,URINE NEGATIVE (NEGATIVE); UROBILINOGEN,URINE 0.2 mg/dL (0.2-1.0)
[2024-11-13 11:34] LABS: HCG,QUALITATIVE URINE NEGATIVE (NEGATIVE); RBC,URINE 0-1 /HPF (0-1); SQUAMOUS EPITHELIAL CELL,UR RARE /HPF (0-2); WBC,URINE 0-1 /HPF (0-1)
[2024-11-13 11:36] LABS: CREATININE 0.6 mg/dL (0.5-1.0); POTASSIUM 4.2 mmol/L (3.5-5.1)
[2024-11-13 11:40] LABS: ALBUMIN 3.4 g/dL (3.5-5.0); BILIRUBIN,DIRECT 0.1 mg/dL (0.0-0.3); BILIRUBIN,TOTAL 0.3 mg/dL (0.2-1.0); TOTAL PROTEIN, SERUM 6.5 g/dL (6.0-8.3)
[2024-11-13] MEDS: ondanSETRON 4MG INJ IVP ONE (11:58)
[2024-11-13] MEDS: PANTOPrazole 40 MG/VIAL IVP ONE (11:58)
[2024-11-13] MEDS ORDERED: PANT20TA PO (12:33)
[2024-11-13] MEDS ORDERED: ONDA-243 PO (12:33)
--- NOTE | 2024-11-13 12:33 | ERN ---
General Chief Complaint: Nausea,Vomiting,Diarrhea Stated Complaint: BODY WEAKNESS Time Seen by MD: 10:27 Time Seen by Midlevel: 10:27 Source: patient History of Present Illness Initial Comments 29-year-old female who presents to the emergency department by EMS due to nausea vomiting and diarrhea onset four days. 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 Reports chills but denies any fever, dysuria, or further associated symptoms. Denies significant past medical history. Surgical history of cholecystectomy. Allergies: Coded Allergies: No Known Allergies (Unverified Allergy, Unknown, 08/30/20) Home Meds Active Scripts Pantoprazole Sodium (Protonix) 20 Mg Tablet.dr, 1 TAB PO DAILY for 7 Days, #7 TAB 0 Refills Prov:DAVIS NOBLE 11/13/24 Ondansetron (Ondansetron Odt) 4 Mg Tab.rapdis, 1 TAB PO TID PRN for nausea/vomiting for 3 Days, #9 TAB 0 Refills Prov:DAVIS NOBLE 11/13/24 Acetaminophen with Codeine (Acetaminophen-Cod #3 Tablet) 300 Mg-30 Mg Tablet, 1 EACH PO Q4PRN, #20 TAB Prov:CHANELLE PASTOR MD 06/03/24 Past Medical History Past Medical History: Asthma, Other Medical History Other: GALLSTONES Past Surgical History: Cholecystectomy Social History Social History: Negative Female( History) : 2 Para: 1 ROS Dictation Constitutional: Negative for fever,chills, and weight loss Eyes: Negative for injury, pain,redness, and discharge ENT: Negative for injury,pain or swelling Cardiovascular: Negative for chest pain, palpitations, and edema Respiratory: Negative for shortness of breath, cough, and wheezing, Abdomen/GI: Positive for nausea, vomiting, diarrhea Negative for abdominal pain, and constipation Back: Negative for injury and pain : Negative for painful urination, bleeding or discharge MS/Extremity: Negative for injury and deformity Skin: Negative for rash, and discoloration Neuro: Negative for headache, weakness, numbness, tingling, and seizure Psych: Negative for suicide ideation, homicidal ideation, and hallucinations Physical Exam Physical Exam Dictation General: awake, alert, no acute distress Head/Face: Normocephalic, atraumatic Eyes: PERRL, EOMI, normal conjunctiva ENT: oral cavity clear, oral mucosa moist Neck: Supple, normal range of motion Cardiovascular: RRR, normal S1/S2 Respiratory: CTAB, no respiratory distress, no rales or wheezes Abdomen: Soft, non-tender, non-distended, no guarding or rebound. Skin: Warm, dry, normal turgor, no rash MS/Extremity: Pulses equal, no cyanosis, neurovascular intact, FROM Neuro: COAx4, GCS 15, strength 5/5, CN 2-12 intact, normal cerebellar exam, normal gait Psych: Normal behavior, mood, and affect normal Results Laboratory and Microbiology Lab and Micro Result Laboratory Tests Test 11/13/24 10:46 11/13/24 11:07 White Blood Count 9.5 K/uL (4.8-10.8) Red Blood Count 3.98 MIL/uL (4.00-5.50) L Hemoglobin 12.5 g/dL (12.0-16.0) Hematocrit 36.9 % (36-48) Mean Corpuscular Volume 92.7 fL (79-99) Mean Corpuscular Hemoglobin 31.4 pg (27.0-33.0) Mean Corpuscular Hemoglobin Concent 33.9 g/dL (32.0-36.0) Red Cell Distribution Width 13.2 % (11.0-15.5) Platelet Count 243 K/uL (130-400) Mean Platelet Volume 10.2 fL (7.5-10.5) Immature Granulocyte % (Auto) 0.4 % (0-1) Neutrophils (%) (Auto) 78.0 % (40.0-77.0) H Lymphocytes (%) (Auto) 15.7 % (21.0-51.0) L Monocytes (%) (Auto) 5.0 % (3.0-13.0) Eosinophils (%) (Auto) 0.6 % (0.0-8.0) Basophils (%) (Auto) 0.3 % (0.0-5.0) Neutrophils # (Auto) 7.4 K/uL (1.8-7.7) Lymphocytes # (Auto) 1.5 K/uL (1.0-4.8) Monocytes # (Auto) 0.5 K/uL (0.1-1.0) Eosinophils # (Auto) 0.06 K/uL (0.00-0.70) Basophils # (Auto) 0.03 K/uL (0.00-0.20) Absolute Immature Granulocyte (auto 0.04 K/uL (0-1) Nucleated Red Blood Cells 0.0 % (0.0-0.19) Sodium Level 141 mmol/L (136-145) Potassium Level 4.2 mmol/L (3.5-5.1) Chloride Level 107 mmol/L (101-111) Carbon Dioxide Level 28 mmol/L (21-32) Blood Urea Nitrogen 9 mg/dL (7-18) Creatinine 0.6 mg/dL (0.5-1.0) Glomerular Filtration Rate Calc 126 mL/min (>90) Random Glucose 102 mg/dL (70-105) Total Calcium 8.2 mg/dL (8.5-10.1) L Total Bilirubin 0.3 mg/dL (0.2-1.0) Direct Bilirubin 0.1 mg/dL (0.0-0.3) Aspartate Amino Transf (AST/SGOT) 17 U/L (10-37) Alanine Aminotransferase (ALT/SGPT) 23 U/L (12-78) Alkaline Phosphatase 40 U/L (50-136) L Total Protein 6.5 g/dL (6.0-8.3) Albumin 3.4 g/dL (3.5-5.0) L Lipase 28 U/L (16-77) Urine Color COLORLESS (YELLOW) Urine Appearance CLEAR (CLEAR) Urine pH 5.5 (5.0-8.0) Urine Specific [place] 1.003 (1.001-1.031) Urine Protein NEGATIVE mg/dL (NEGATIVE) Urine Glucose (UA) NEGATIVE mg/dL (NEGATIVE) Urine Ketones NEGATIVE mg/dL (NEGATIVE) Urine Occult Blood NEGATIVE (NEGATIVE) Urine Nitrate NEGATIVE (NEGATIVE) Urine Bilirubin NEGATIVE mg/dL (NEGATIVE) Urine Urobilinogen 0.2 mg/dL (0.2-1.0) Urine Leukocyte Esterase NEGATIVE [place]/uL Urine RBC 0-1 /HPF (0-1) Urine WBC 0-1 /HPF (0-1) Urine Squamous Epithelial Cells RARE /HPF (0-2) Urine Bacteria None /HPF (None Seen) Urine HCG, Qualitative NEGATIVE (NEGATIVE) MDM MDM: Differential diagnosis: Viral gastroenteritis, diarrhea, electrolyte imbalance, dehydration Rationale: 29-year-old female who presents to the emergency department by EMS due to nausea vomiting and diarrhea onset four days. 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 Reports chills but denies any fever, dysuria, or fu rther associated symptoms. Denies significant past medical history. Surgical history of cholecystectomy. EMS administered 1 L NS. Per physical examination patient's abdomen is soft nontender, nontoxic appearing, in no acute distress. Labs obtained CBC, BNP, LFTs, lipase within normal limits. UA negative for urinary tract infection. Protonix and Zofran administered in the ED. On re-examination patient verbalized she was feeling better, continue to denied any current abdominal pain. Patient was educated on findings and diagnosis. Advised to follow up with PCP. Return to the emergency department if any worsening symptoms. Patient verbalized understanding. Patient stable for discharge. There are no social concerns with this patient. I independently interpreted the test that were performed, results were reviewed by me and considered findings on radiology if ordered. Medical management and examination interpretation discussions were had by me with other qualified healthcare professionals as indicated for the patient's care. ED Course Orders Procedure Category Date Status Time Cbc With Differential LAB 11/13/24 Complete 10:30 Basic Metabolic Panel LAB 11/13/24 Complete 10:30 Hepatic Function Panel LAB 11/13/24 Complete 10:30 Lipase LAB 11/13/24 Complete 10:30 Urinalysis LAB 11/13/24 Complete W/Microscopic 10:30 ,Urine Test LAB 11/13/24 Complete 10:30 Ondansetron 4mg Inj PHA 11/13/24 Complete (Zofran 4mg Inj) 12:00 Pantoprazole 40mg Inj PHA 11/13/24 Complete (Protonix 40mg Inj 12:00 Current Medications Medications (Trade) Dose Ordered Sig/Matt Route PRN Reason Start Time Stop Time Status Last Admin Dose Admin Ondansetron HCl (zoFRAN 4MG INJ) 4 mg ONCE ONCE IVP 11/13/24 12:00 11/13/24 12:01 DC 11/13/24 11:58 Pantoprazole Sodium (PROTonix 40MG INJ) 40 mg ONCE ONCE IVP 11/13/24 12:00 11/13/24 12:01 DC 11/13/24 11:58 Vital Signs Date Time Temp Pulse Resp B/P (MAP) Pulse Ox O2 Delivery O2 Flow Rate FiO2 11/13/24 10:29 97.9 60 17 95/65 98 Room Air 0 DX & DISP Disposition: Discharge Departure Impression: Primary Impression: Viral diarrhea Additional Impression: Nausea, vomiting, and diarrhea Condition: Stable Scripts Pantoprazole Sodium (Protonix) 20 Mg Tablet.dr 1 TAB PO DAILY for 7 Days, #7 TAB 0 Refills Prov: DAVIS NOBLE 11/13/24 Ondansetron (Ondansetron Odt) 4 Mg Tab.rapdis 1 TAB PO TID PRN for nausea/vomiting for 3 Days, #9 TAB 0 Refills Prov: DAVIS NOBLE 11/13/24 Additional Instructions: Discharge home. Rest. Follow up with primary care in 24 hours. Return to the ER for any acute changes or worsening symptoms. If any medications were prescribed take as directed. Okay to continue home medications unless otherwise discussed during your visit in the emergency room today. Patient was also advised to follow-up with primary care physician in 1 to 2 days for continued monitoring. Referrals: NONE (PCP) I performed the substantive portion of the visit. I have reviewed and personally made and approve the management plan that is documented in the notes by myself or the [facility]. I acknowledge full responsibility for the patient's management plan. DAVIS NOBLE Nov 13, 2024 12:33
[2024-11-13 13:09] VITALS: BP 110/69; PULSE 62; RESP 16; TEMP 98; O2SAT 99
== END 2024-11-13 13:00 | disposition home or self-care (01) ==
LOC: EDH 10:26
DX: A08.4 Viral intestinal infection, unspecified (principal); R11.2 Nausea with vomiting, unspecified; J45.909 Unspecified asthma, uncomplicated; Z79.899 Other long term (current) drug therapy; Z90.49 Acquired absence of other specified parts of digestive tract
CPT/HCPCS: 99284; 96374; 96375; 80076; 80048; 83690; 85025; 81001; 81025; 36415; J2405; J2470